=== PATIENT | female | born 1955 | race Caucasian/White ===

== ENCOUNTER 2017-09-02 06:52 | Emergency (ER) | payer OTHER ==
[~2017-09-02] VITALS: Ht 162.6 cm; Wt 61.2 kg
[~2017-09-02 06:52] MED LIST: KEFLEX500 M1 PO; NORCO 5-325 TA1 EACH PO; PREMPRO 0.3 MG1 EACH PO; TOPAMAX100 MG PO
[2017-09-02 07:31] VITALS: BP 144/58
[2017-09-02 07:31] LABS: ABSOLUTE NEUTROPHILS 10.6 thou/uL (1.4-8.2); BASOPHILS 0.2 % (0.0-2.0); HEMATOCRIT 37.4 % (37.0-47.0); HEMOGLOBIN 12.8 gm/dL (12.0-15.0); LYMPHOCYTES 12.1 % (24.0-44.0); MCH 32.8 pg (26.0-34.0); MCHC 34.1 g/dL (28.0-37.0); MCV 96.3 fL (80.0-100.0); MONOCYTES 5.7 % (1.0-8.0); PLATELET COUNT 195 thou/uL (150-400); RBC 3.88 mil/uL (4.20-5.00); RDW 12.5 % (10.5-14.5); WBC 13.1 thou/uL (4.0-11.0)
[2017-09-02 07:38] LABS: CALCIUM 8.6 mg/dL (8.5-10.1); CREATININE 0.8 mg/dL (0.6-1.0); POTASSIUM 3.7 mmol/L (3.5-5.1)
[2017-09-02] MEDS ORDERED: PERCOCET 5-3251 EACH PO (08:02)
== END 2017-09-02 08:17 | disposition home or self-care (01) ==
LOC: ER 06:52
PROVIDERS: Emergency Medicine
DX: L03.115 Cellulitis of right lower limb (principal); F41.9 Anxiety disorder, unspecified